=== PATIENT | female | born 1940 | race Caucasian/White ===

== ENCOUNTER 2017-03-08 12:46 | Inpatient (IN) | payer MEDICARE ==
[~2017-03-08] VITALS: Ht 177.8 cm; Wt 80.2 kg
[~2017-03-08 12:46] MED LIST: ADVIL200 MG PO; CITRACAL + D 311 TAB PO; CYMBALTA 30MG30 MG PO; DULCOLAX10 MG RC; ENTOCORT EC3 MG PO; INTRATHECAL PUMP; MULTIPLE VITAMI1 CAP PO; PERCR 7.5 PO; ROXICODONE 55 MG/TAB PO; SEE INSTRUCTIONS IT; SYNTHROID0.125 MG/T PO; TUMS500 MG PO; XANAX .25M0.25 MG/TA PO; [UNRECOGNIZED DRUG - OTHER] BC
[2017-05-01] MEDS ORDERED: DILAUDID 4MG TAB4 MG PO (10:38)
[2017-05-01] MEDS ORDERED: KLOR-CON 1010 MEQ PO (10:40)
[2017-05-01] MEDS ORDERED: IMITREX 25MG TA25 MG PO (10:41)
[2017-05-01] MEDS ORDERED: TOPROL XL 25MG25 MG PO (10:41)
[2017-05-02 07:02] VITALS: BP 127/80; PULSE 101; TEMP 98.1
[2017-05-02] MEDS ORDERED: IMODIUM 2MG CAPS2 MG PO (08:07)
[2017-05-02] MEDS ORDERED: ZYCAM NAS (08:08)
[2017-05-02] MEDS ORDERED: ZANTAC 150MG T150 MG PO (08:10)
[2017-05-02 08:11] VITALS: BP 127/80; PULSE 101; TEMP 98.1
[2017-05-02 17:20] VITALS: BP 84/46; PULSE 100
[2017-05-02 18:35] VITALS: BP 98/56; PULSE 70; TEMP 98.6
[2017-05-02 19:05] VITALS: BP 105/65; PULSE 76; TEMP 9836
[2017-05-03 00:01] VITALS: BP 105/52; PULSE 86; TEMP 98
[2017-05-03 03:47] VITALS: BP 100/56; PULSE 67; TEMP 98.1
[2017-05-03 06:33] LABS: HEMATOCRIT 31.3 % (37.0-47.0); HEMOGLOBIN 10.3 g/dl (12.5-16.0)
[2017-05-03 07:42] VITALS: BP 122/51; PULSE 87; TEMP 98.2
[2017-05-03 11:34] VITALS: BP 124/62; PULSE 58; TEMP 98.6
[2017-05-03 16:11] VITALS: BP 130/96; PULSE 94; TEMP 98.1
[2017-05-03 19:57] VITALS: BP 130/64; PULSE 102; TEMP 98.2
[2017-05-04 04:21] VITALS: BP 108/64; PULSE 100; TEMP 98.3
[2017-05-04 07:34] VITALS: BP 126/58; PULSE 102; TEMP 98.9
[2017-05-04 11:50] VITALS: BP 117/67; PULSE 73; TEMP 97.9
[2017-05-04] MEDS ORDERED: ROXICODONE 55 MG/TAB PO (16:01)
[2017-05-04] MEDS ORDERED: NORCO 325 MG-7.1 TAB PO (16:02)
== END 2017-05-04 16:33 | disposition home or self-care (01) | DRG 483 ==
LOC: JCC 05-02 06:49
PROVIDERS: Orthopaedic Surgery
PROC: 0RRJ0JZ Replacement of Right Shoulder Joint with Synthetic Substitute, Open Approach (ICD-10-PCS; principal; 2017-05-02 10:15)
DX: M19.011 Primary osteoarthritis, right shoulder (principal); Z86.711 Personal history of pulmonary embolism; Z87.891 Personal history of nicotine dependence
CPT/HCPCS: A4315; A9284; C1713; C1776; J0171; J0690; J1100; J1170; J2250; J2370; J2405; J2704; J3010; J7042; J7120

== ENCOUNTER → 2017-04-25 | Outpatient (CLI) | payer MEDICARE ==
[~2017-04-25] MED LIST changes: +DILAUDID 4MG TAB4 MG PO; +IMITREX 25MG TA25 MG PO; +IMODIUM 2MG CAPS2 MG PO; +KLOR-CON 1010 MEQ PO; +NORCO 325 MG-7.1 TAB PO; +TOPROL XL 25MG25 MG PO; +ZANTAC 150MG T150 MG PO; +ZYCAM NAS
== END ==
LOC: COL.RAD 09:12
DX: M19.011 Primary osteoarthritis, right shoulder (principal)

== ENCOUNTER → 2017-04-28 | Outpatient (CLI) | payer MEDICARE ==
[2017-04-28 16:07] LABS: HIV 1/2 Antibodies Non-Reactive; HIV-1p24 Antigen Non-Reactive
== END ==
LOC: COL.LAB 14:57
PROVIDERS: Orthopaedic Surgery
DX: Z01.812 Encounter for preprocedural laboratory examination (principal); M25.811 Other specified joint disorders, right shoulder